=== PATIENT | female | born 1950 | race Caucasian/White ===

== ENCOUNTER → 2017-08-03 | Outpatient (CLI) | payer MEDICARE, OTHER ==
[~2017-08-03] MED LIST: ALBU90OI; AMPDEX10CR; ASPI81EC; ASPI81EC PO; ASPIRIN PO; BENZ100A PO; BUPR150T2; BYSTOLIC PO; CALCAVITDA PO; CALCIUM; CETI10 PO; CIPR500; CITA20 PO; CLON.5 PO; CLON2; CYAN100; CYAN1000 PO; CYCL0.05OP BOTHEYES; CYCL10 PO; DONE5; ERGO400 PO; ESTR2 PO; ESTR25VT; FISH1000; FISH1000 PO; FLUO10; HYDACE5 PO; HYDACE5325 PO; HYDHOMSY; IBANDRONATE; LIDO; LIDO2L MM; MAALOX; METO25ER; METO50 PO; MULTIVITAMIN; MULVITB&C PO; MULVITMIND PO; NAPR220 PO; NEBI5 PO; NITR.4SL SL; NITRSPRAY SL; OMEP20ER PO; OXYACE5T PO; PRED; PRED5 PO; PROACE100; PROM25; QVAR 40 MCG; RESTASIS EYE DROPS; RIZA; RIZATRIPTAN; RXHYD5325 PO; SUMA6I; SUMA6I SC; TRAZ50; TRAZ50 PO; VERA100; VIACTIVE; ZOLP10; ZYRTEC10 M1 PO; [UNRECOGNIZED DRUG - OTHER]; [UNRECOGNIZED DRUG - OTHER]; [UNRECOGNIZED DRUG - OTHER]; [UNRECOGNIZED DRUG - OTHER] PO
== END | disposition home or self-care (01) ==
LOC: LAB 17:30
DX: R19.7 Diarrhea, unspecified (principal)
CPT/HCPCS: 87493

== ENCOUNTER → 2019-05-05 | Outpatient (CLI) | payer MEDICARE, OTHER | END | disposition home or self-care (01) | LOC: LAB 12:10 → LAB SHORT 12:10 | DX: N39.0 Urinary tract infection, site not specified (principal) | CPT/HCPCS: 87077; 87086; 87186 ==

== ENCOUNTER → 2019-05-23 | Outpatient (CLI) | payer MEDICARE, OTHER | END | disposition home or self-care (01) | LOC: LAB SHORT 17:59 → LAB 17:59 | DX: N39.0 Urinary tract infection, site not specified (principal); N94.10 Unspecified dyspareunia; M70.98 Unspecified soft tissue disorder related to use, overuse and pressure other | CPT/HCPCS: 87086 ==

== ENCOUNTER 2021-04-19 06:21 | Day surgery (SDC) | payer MEDICARE, OTHER ==
[~2021-04-19] VITALS: Ht 172.7 cm; Wt 76.0 kg
[2021-04-19] MEDS ORDERED: HYDROCHLOROTH12.5 MG PO (06:59)
[2021-04-19] MEDS ORDERED: GABA300 PO (06:59)
[2021-04-19] MEDS ORDERED: LACT10SY PO (07:00)
[2021-04-19] MEDS ORDERED: METO25ER PO (07:00)
[2021-04-19] MEDS ORDERED: OMEP20ER PO (07:01)
[2021-04-19] MEDS ORDERED: POTA10T PO (07:01)
--- NOTE | 2021-04-19 11:45 | NUR ---
12CC AIR REMOVED FROM TR BAND. -BLEEDING OR SWELLING.
--- NOTE | 2021-04-19 12:15 | NUR ---
R WRIST TR BAND REMOVED. PUNCTURE AREA CLEANED /C NS AND DRESSED /C CLOTH DOT DRSG. -BLEEDING OR SWELLING. R WRIST SPLINT REAPPLIED.
--- NOTE | 2021-04-19 12:19 | NUR ---
PT VERBALIZED UNDERSTANDING OF WRITTEN AND VERBAL D/C INST. IV REMOVED. PT TAKEN OUT OF THE [facility]RT CENTER VIA W/C.
== END 2021-04-19 12:30 | disposition home or self-care (01) ==
LOC: MHTC 06:21
DX: I34.0 Nonrheumatic mitral (valve) insufficiency (principal); I34.1 Nonrheumatic mitral (valve) prolapse; I10 Essential (primary) hypertension; K21.9 Gastro-esophageal reflux disease without esophagitis; I73.9 Peripheral vascular disease, unspecified; G47.30 Sleep apnea, unspecified
CPT/HCPCS: 76937; 93460; 99152; 99153; C1769; C1887; C1894; J1644; J2250; J3010; J7030; J7050; Q9967

== ENCOUNTER → 2022-01-20 | Outpatient (CLI) | payer MEDICARE, OTHER | LOC: LAB SHORT 15:21 | DX: R30.9 Painful micturition, unspecified (principal) ==

== ENCOUNTER → 2022-03-18 | Outpatient (CLI) | payer MEDICARE, OTHER ==
[~2022-03-18] MED LIST changes: +GABA300 PO; +HYDROCHLOROTH12.5 MG PO; +LACT10SY PO; +METO25ER PO; +POTA10T PO
== END | disposition home or self-care (01) ==
LOC: LAB 14:44 → LAB SHORT 14:44
DX: N39.0 Urinary tract infection, site not specified (principal)
CPT/HCPCS: 87077; 87086; 87186

== ENCOUNTER → 2022-04-04 | Outpatient (CLI) | payer MEDICARE, OTHER | LOC: LAB 14:10 → LAB SHORT 14:10 | DX: N39.0 Urinary tract infection, site not specified (principal) | CPT/HCPCS: 87077; 87086; 87186 ==

== ENCOUNTER → 2022-05-03 | Outpatient (CLI) | payer MEDICARE, OTHER | LOC: LAB SHORT 16:15 → LAB 16:15 | DX: R30.9 Painful micturition, unspecified (principal) | CPT/HCPCS: 87086 ==

== ENCOUNTER 2022-09-14 10:00 | Emergency (ER) | payer MEDICARE, OTHER ==
[~2022-09-14] VITALS: Ht 172.7 cm; Wt 73.5 kg
[2022-09-14] MEDS ORDERED: METO25 PO (10:31)
[2022-09-14] MEDS ORDERED: BUSP10 PO (10:32)
[2022-09-14] MEDS ORDERED: Atarax10 MG PO (10:33)
[2022-09-14] MEDS ORDERED: TRAZ50 PO (10:33)
[2022-09-14] MEDS ORDERED: CEPH250A PO (10:34)
[2022-09-14] MEDS ORDERED: ASPI81CH PO (10:35)
[2022-09-14] MEDS ORDERED: RIZATRIPTAN10 MG SL (10:36)
[2022-09-14] MEDS ORDERED: [UNRECOGNIZED DRUG - OTHER] (10:38)
[2022-09-14 12:00] VITALS: BP 112/71
[2022-09-14] MEDS ORDERED: METO10 PO (12:26)
== END 2022-09-14 12:44 | disposition home or self-care (01) ==
LOC: ER 10:00
DX: G43.909 Migraine, unspecified, not intractable, without status migrainosus (principal); Z88.8 Allergy status to other drugs, medicaments and biological substances; Z79.899 Other long term (current) drug therapy; Z79.82 Long term (current) use of aspirin; I10 Essential (primary) hypertension
CPT/HCPCS: 93005; 93010; 99284-25; A9270

== ENCOUNTER 2022-10-03 06:58 | Day surgery (SDC) | payer MEDICARE, OTHER ==
[2022-10-03] VITALS (17 sets, daily range): BP systolic 91–138; BP diastolic 45–82
[~2022-10-03] VITALS: Ht 172.7 cm; Wt 78.0 kg
[~2022-10-03 06:58] MED LIST changes: +ASPI81CH PO; +Atarax10 MG PO; +BUSP10 PO; +CEPH250A PO; +Celexa20 MG PO; +METO10 PO; +METO25 PO; +MIRALAX17 GM PO; +MULVITA; +RIZATRIPTAN10 MG SL; +SYSTANE BALANCE10 ML; +THERA-D2000 UNIT PO; +[UNRECOGNIZED DRUG - OTHER]; +[UNRECOGNIZED DRUG - OTHER]
[2022-10-03] MEDS ORDERED: TRAZ50 PO (07:12)
[2022-10-03] MEDS ORDERED: DESV50 PO (07:12)
[2022-10-03] MEDS ORDERED: ZYRTEC10 M1 PO (07:14)
--- NOTE | 2022-10-03 08:10 | NUR ---
UNABLE TO PERFORM BONNY. PATIENT SEDATED ON 3 VERSED AND 75 OF FENTANYL. VSS ON 4 L NC.
--- NOTE | 2022-10-03 08:45 | NUR ---
SPOUSE PRESENT AT BEDSIDE. DR. HOSKINS PRESENT TO EXPLAIN THE UNSUCCESSFUL PROCEDURE. DR HOSKINS SPOKE WITH DR DESAI ON THE PHONE. FOLLOW UP APPOINTMENT IS SCHEDULED WHERE PATIENT WILL BE ABLE TO DISCUSS FURTHER STEPS WITH DR. DESAI. VSS.
--- NOTE | 2022-10-03 09:20 | NUR ---
DISCHARGE PAPERWORK AND FOLLOW UP APPOINTMENT DISCUSSED WITH PATIENT AND SPOUSE AT BEDSIDE.
--- NOTE | 2022-10-03 09:30 | NUR ---
PATIENT DISCHARGED HOME AT THIS TIME. DISCHARGE PAPERWORK AND PATIENT BELONGINGS LEFT WITH PATIENT. PIV REMOVED WITHOUT DIFFICULTY, CATHETER INTACT. PATIENT WHEELED TO PATIENT ENTRANCE. PATIENTS SPOUSE ABLE TO TRANSPORT PATIENT HOME.
== END 2022-10-03 22:43 | disposition home or self-care (01) ==
LOC: MHTC 06:58
DX: R06.09 Other forms of dyspnea (principal); Z95.3 Presence of xenogenic heart valve; Z53.09 Procedure and treatment not carried out because of other contraindication
CPT/HCPCS: 93312; 93325; 99152; A9270; J2250; J2310; J3010; J7030

== ENCOUNTER → 2022-11-14 | Outpatient (CLI) | payer MEDICARE, OTHER ==
[~2022-11-14] MED LIST changes: +DESV50 PO
== END | disposition home or self-care (01) ==
LOC: LAB SHORT 14:50 → LAB 14:50
DX: N39.0 Urinary tract infection, site not specified (principal)
CPT/HCPCS: 87077; 87086; 87186

== ENCOUNTER → 2023-01-16 | Outpatient (CLI) | payer MEDICARE, OTHER | LOC: LAB SHORT 08:01 → PLD 08:01 | DX: C44.712 Basal cell carcinoma of skin of right lower limb, including hip (principal) | CPT/HCPCS: 88305 ==

== ENCOUNTER 2023-12-23 23:38 | Emergency (ER) | payer MEDICARE, OTHER ==
[~2023-12-23] VITALS: Ht 167.6 cm; Wt 79.4 kg
[2023-12-24 00:47] VITALS: BP 114/79
== END 2023-12-24 00:47 | disposition home or self-care (01) ==
LOC: ER 23:38
DX: U07.1 COVID-19 (principal); J06.9 Acute upper respiratory infection, unspecified; I10 Essential (primary) hypertension; Z79.82 Long term (current) use of aspirin; Z79.899 Other long term (current) drug therapy
CPT/HCPCS: 93005; 93010; 99284-25

== ENCOUNTER 2024-08-14 03:54 | Day surgery (SDC) | payer MEDICARE, OTHER ==
[2024-08-14] MEDS ORDERED: ZOLEDRONIC ACID/MANNITOL-WATER 100 ML IV SCH (06:00)
[2024-08-14 08:10] VITALS: BP 119/68
== END 2024-08-14 09:12 | disposition home or self-care (01) ==
LOC: ATC 03:54
DX: M81.0 Age-related osteoporosis without current pathological fracture (principal); I10 Essential (primary) hypertension; M32.9 Systemic lupus erythematosus, unspecified; M35.00 Sjogren syndrome, unspecified; F43.12 Post-traumatic stress disorder, chronic; K59.04 Chronic idiopathic constipation; K21.9 Gastro-esophageal reflux disease without esophagitis; G47.33 Obstructive sleep apnea (adult) (pediatric); Z79.82 Long term (current) use of aspirin; Z79.899 Other long term (current) drug therapy; Z88.1 Allergy status to other antibiotic agents; Z95.0 Presence of cardiac pacemaker
CPT/HCPCS: 96374; J3489

== ENCOUNTER 2024-12-15 12:40 | Day surgery (SDC) | payer MEDICARE, OTHER ==
[~2024-12-15] VITALS: Ht 172.7 cm; Wt 73.3 kg
[~2024-12-15 12:40] MED LIST changes: +Bupivacaine 0.5% HCl 5 MG/ML 30MLVIAL ONE; +Lidocaine HCl 2% 10 ML SDA ONE
[2024-12-15] MEDS ORDERED: NS 100 ML IV ONE (13:04)
[2024-12-15] MEDS ORDERED: CeFAZolin Sodium 2,000 MG VIAL ONE (13:04)
[2024-12-15] MEDS ORDERED: Calcium Carbon500 MG PO (13:17)
[2024-12-15] MEDS ORDERED: REGLAN1013 PO (13:19)
[2024-12-15] MEDS ORDERED: methenamine hippurat (13:20)
[2024-12-15] MEDS ORDERED: CARVEDILOL6.25 MG PO (13:20)
[2024-12-15] MEDS ORDERED: Tylenol325 MG PO (13:21)
[2024-12-15] MEDS ORDERED: SYSTANE COMPLET10 ML (13:22)
[2024-12-15] MEDS ORDERED: VITAMIN C (13:22)
[2024-12-15] MEDS ORDERED: [UNRECOGNIZED DRUG - OTHER] (13:23)
[2024-12-15] MEDS ORDERED: TUMERIC (13:23)
[2024-12-15] MEDS ORDERED: Midazolam HCl 1MG / ML 2ML Vial ONE (13:44)
--- NOTE | 2024-12-15 14:22 | NUR ---
12/15/24 [facility] 1352: TIMEOUT BY DR GUTHRIE 1354: START OF BLOCK PROCEDURE BY DR GUTHRIE. 1359: BLOCK COMPLETED BY DR GUTHRIE. PT TOLERATED WELL. ON ROOM AIR.
--- NOTE | 2024-12-15 15:41 | NUR ---
12/15/24 1541 Sarah Cardozo DISTAL TO SURGICAL SITE (+) CAP REFILL, NUMB, UNABLE TO WIGGLE FINGERS AT THIS TIME
[2024-12-15 15:46] VITALS: BP 155/86
== END 2024-12-15 16:08 | disposition home or self-care (01) ==
LOC: ORSCSDS 12:40
PROVIDERS: Orthopaedic Surgery
PROC: 0RRT07Z Replacement of Left Carpometacarpal Joint with Autologous Tissue Substitute, Open Approach (ICD-10-PCS; principal; 2024-12-15 14:00)
PROC: 0LN60ZZ Release Left Lower Arm and Wrist Tendon, Open Approach (ICD-10-PCS; principal; 2024-12-15 14:00)
DX: M18.12 Unilateral primary osteoarthritis of first carpometacarpal joint, left hand (principal); M65.4 Radial styloid tenosynovitis [de Quervain]; F41.9 Anxiety disorder, unspecified; M79.7 Fibromyalgia; I10 Essential (primary) hypertension; L93.0 Discoid lupus erythematosus; K21.9 Gastro-esophageal reflux disease without esophagitis; G47.33 Obstructive sleep apnea (adult) (pediatric); Z79.82 Long term (current) use of aspirin; Z79.899 Other long term (current) drug therapy
CPT/HCPCS: C1713; J0690; J2003; J2250; J2704; J7120